=== PATIENT | female | born 1955 | race Caucasian/White ===

== ENCOUNTER 2017-01-24 12:47 | Emergency (ER) | payer OTHER ==
[~2017-01-24] VITALS: Ht 157.5 cm; Wt 79.0 kg
[~2017-01-24 12:47] MED LIST: ASPI-664 PO; ASPI81TA3 PO; FOR CHOLESTEROL; FOR HTN; INSULIN; LASS PO; THYROID MED; [UNRECOGNIZED DRUG - OTHER]; [UNRECOGNIZED DRUG - OTHER]; [UNRECOGNIZED DRUG - OTHER]; [UNRECOGNIZED DRUG - OTHER]; [UNRECOGNIZED DRUG - REMARK]; cholesterol med; insulin; thyroid medication
[2017-01-24 12:49] VITALS: Ht 157.5 cm; Wt 79.0 kg
--- NOTE | 2017-01-24 15:22 | ERD ---
ER Documentation Chief Complaint Date/Time DATE: 01/24/17 TIME: 15:00 Chief Complaint Complains of HTN with normal BP HX of Diabestes HPI 61-year-old female who presented to the emergency room for hypertension and high blood sugar. Daughter stated that they took her blood sugar at around 12 noon it was 230 mg/dl. they also took her blood pressure at around 12 noon and stated it was elevated but unknown specific number. The daughter stated that the really came in for abdominal pain that has been going on and off for about a week. Denies headache, loss of consciousness, dizziness, blurry vision, changes in vision, photophobia, facial pain, ear pain, throat pain, difficulty swallowing, neck pain, shoulder pain, chest pain, cough, hemoptysis, loss of appetite, nausea, vomiting, hematochezia, diarrhea, constipation, urinary symptoms, , the possibility of being , bladder and bowel incontinences, extremity weakness, extremity tenderness, numbness or tingling sensation, difficulty walking, recent travel, recent exposure to illness, recent antibiotic use in the last 3 months, fever, chills. No known drug allergies. Past medical history of hypertension, diabetes, thyroid disease. Denies any surgical history. Medications: Venlafaxine, Norvasc, losartan, levothyroxine, Reglan, oxybutynin, insulin Denies smoking, use of alcohol, use of illegal drugs. ROS All systems reviewed and are negative except as per history of present illness. Medications Home Meds Reported Medications Aspirin* (Aspirin* EC) 81 Mg Tablet.dr, PO DAILY, TAB 05/24/14 [for stomach] No Conflict Check 05/24/14 [cholesterol med] No Conflict Check 05/24/14 [thyroid medication] No Conflict Check 05/24/14 [diabetes medicine] No Conflict Check 05/24/14 [antihypertensives x3] No Conflict Check 05/24/14 [insulin] No Conflict Check 05/24/14 Furosemide* (Lasix* Liq) 8 Mg/Ml Soln, 40 MG PO DAILY 09/13/12 [Thyroid Med.] No Conflict Check, DAILY 09/13/12 [3 Meds. For Stomach] No Conflict Check, DAILY 09/13/12 Aspirin* (Aspirin* Chew) 81 Mg Tab.chew, 81 MG PO DAILY 09/13/12 [For Htn] No Conflict Check, DAILY 09/13/12 [For Cholesterol] No Conflict Check, DAILY 09/13/12 [Insulin] No Conflict Check 09/13/12 [For Dm] No Conflict Check, DAILY 09/13/12 Allergies Allergies: Coded Allergies: No Known Drug Allergies (Verified Allergy, Unknown, 09/13/12) PMhx/Soc History of Surgery: Yes Anesthesia Reaction: No Hx Neurological Disorder: No Hx Respiratory Disorders: No Hx Cardiac Disorders: Yes (HTN) Hx Psychiatric Problems: No Hx Miscellaneous Medical Probl: Yes Hx Alcohol Use: No Hx Substance Use: No Hx Tobacco Use: No Physical Exam Vitals Vital Signs Date Time Temp Pulse Resp B/P Pulse Ox O2 Delivery O2 Flow Rate FiO2 01/24/17 12:49 98.5 64 20 130/61 99 Physical Exam CONSTITUTIONAL: Well-appearing; well-nourished; in no apparent distress. HEAD: Normocephalic; atraumatic. EYES: Conjunctiva clear, sclera non-icteric, EOM intact. PERRL Ears: Hearing intact. EACs clear, TMs non-bulging, non-inflamed, translucent & mobile, ossicles normal appearance, No obstructions, no erythema, no discharges Nose: No obstructions. No polyps. No external lesions. Mucosa non-inflamed. No external lesions, septum and turbinates normal. No rhinorrhea. No discharges. Frontal sinus is non-tender to palpation. Maxillary sinus is non-tender to palpation. MOUTH: Moist mucous membranes, no lesion, no obstructions, no vesicles, no thrush, patent airway Throat: Uvula in midline. Right tonsil is +1 with no erythema, no exudate. Left tonsil is +1 with no erythema, no exudate. Tolerating secretions well. Good gag reflex. Patent airway. Neck: Supple, without lesions, bruits, or adenopathy. No mass. Thyroid non- enlarged and non-tender to palpation. CHEST: Symmetrical chest. Respirations even and not labored. No retractions noted. CARDIOVASCULAR: Normal S1, S2. RRR. No murmurs, gallops. RESPIRATORY: Normal chest excursion with respiration; breath sounds clear and equal bilaterally; no wheezes, rhonchi, or rales. Breathing even and unlabored. Speaking in clear, full, and complete sentences w/ ease. ABDOMEN: Normal bowel sounds normal. Distended. Soft, round, non-guarding, no tenderness, no rebound, no organomegaly, no masses, no pulsating abdominal mass. No hernia. No peritoneal signs. : No CVA tenderness. BACK: Symmetrical shoulder. Spine is midline without deformity, tenderness. No evidence of trauma or deformity. PELVIS: Stable pelvis. No evidence of trauma or deformity. MUSCULOSKELETAL: Normal gait and station. No misalignment, asymmetry, crepitation, defects, tenderness, masses, effusions, decreased range of motion, instability, atrophy or abnormal strength or tone in the head, neck, spine, ribs , pelvis or extremities. No calf tenderness. NEUROVASCULAR: Distal pulses are present. Pedal pulse are present, equal, and normal. Capillary refills are < 2 seconds. NEUROLOGIC: Alert and oriented x4. Speaks full and clear sentences. Cranial Nerves II-XII normal. Sensation to pain, touch, and proprioception normal. Grossly unremarkable. No neurologic deficits. Romberg test is negative. PSYCHOLOGICAL: The patients mood and manner are appropriate. No hallucinations , delusions. Not SI. Not HI. Has the capacity to decide for self SKIN: Normal for age and ethnicity; warm; dry; good turgor; no apparent lesions or exudates. No rashes, hives, discoloration. Intact. Result Diagram: 01/24/17 1541 01/24/17 1541 Results 24 hrs Laboratory Tests Test 01/24/17 15:41 01/24/17 16:55 White Blood Count 14.910^3/ul Red Blood Count 4.5810^6/ul Hemoglobin 13.4g/dl Hematocrit 39.6% Mean Corpuscular Volume 86.5fl Mean Corpuscular Hemoglobin 29.3pg Mean Corpuscular Hemoglobin Concent 33.8g/dl Red Cell Distribution Width 12.9% Platelet Count 79274^3/UL Mean Platelet Volume 10.4fl Neutrophils % 65.7% Lymphocytes % 25.3% Monocytes % 6.4% Eosinophils % 1.5% Basophils % 0.6% Nucleated Red Blood Cells % 0.0/100WBC Neutrophils # 9.810^3/ul Lymphocytes # 3.810^3/ul Monocytes # 1.010^3/ul Eosinophils # 0.210^3/ul Basophils # 0.110^3/ul Nucleated Red Blood Cells # 0.010^3/ul Prothrombin Time 12.9Sec Prothrombin Time Ratio 1.0 INR International Normalized Ratio 0.97 Activated Partial Thromboplast Time 29.0Sec Sodium Level 139mmol/L Potassium Level 4.1mmol/L Chloride Level 103mmol/L Carbon Dioxide Level 27mmol/L Anion Gap 13 Blood Urea Nitrogen 25mg/dl Creatinine 1.19mg/dl Glucose Level 107mg/dl Calcium Level 9.7mg/dl Total Bilirubin 0.0mg/dl Direct Bilirubin 0.00mg/dl Indirect Bilirubin 0.0mg/dl Aspartate Amino Transf (AST/SGOT) 16IU/L Alanine Aminotransferase (ALT/SGPT) 19IU/L Alkaline Phosphatase 135IU/L Total Protein 7.3g/dl Albumin 3.9g/dl Globulin 3.40g/dl Albumin/Globulin Ratio 1.14 Amylase Level 82U/L Lipase 33U/L Urine Color LT. YELLOW Urine Clarity HAZY Urine pH 6.0 Urine Specific Dodge 1.020 Urine Ketones TRACE Urine Nitrite NEGATIVE Urine Bilirubin NEGATIVE Urine Urobilinogen 0.2 E.U./dL Urine Leukocyte Esterase NEGATIVE Urine Microscopic RBC NONE SEEN/HPF Urine Microscopic WBC 5-10/HPF Urine Squamous Epithelial Cells MODERATE Urine Bacteria FEW Urine Hemoglobin NEGATIVE Urine Glucose NEGATIVE% Urine Total Protein 4+ Procedures/MDM Examination: Please see physical examination. Disease process, medical treatment was explained to the patient and family member. They verbalized understanding and agreed with the diagnostic tests, medical treatment, and follow-up care. EKG: Normal sinus rhythm with a ventricular rate of 64 bpm. No evidence of acute myocardial infarction. Radiology: CT abdomen and pelvis Impression: No evidence of urolithiasis, obstructive uropathy, diverticulitis or appendicitis. Post cholecystectomy. Vascular calcification. Blood works: Reviewed. Urinalysis: Reviewed. Treatment: Re-evaluation: Denies headache, dizziness, blurry vision, neck pain, chest pain , back pain, abdominal pain. No nausea and vomiting. No abdominal pain. Consultation: Differential diagnosis: Abdominal pain Medical decision makin-year-old female who presented to the emergency room for hypertension and high blood sugar. Daughter stated that they took her blood sugar at around 12 noon it was 230 mg/dl. they also took her blood pressure at around 12 noon and stated it was elevated but unknown specific number. The daughter stated that the really came in for abdominal pain that has been going on and off for about a week. Patient stated that her last bowel movement was 4 days ago. Patient's complaint, patient's history about her complaint, my physical findings, diagnostic test results are consistent with my final diagnosis of constipation. Case was discussed with supervising emergency room physician, Dr. Burroughs who agreed with my medical decision making. Medications prescribed are the following: Mag citrate. Patient and family member are made aware of the side effects and adverse reactions of the medications prescribed. Instructed on when to seek emergent and medical attention in case allergic/anaphylactic reactions or severe side effects and or adverse reactions to medications. Patient and family member verbalized understanding. Patient instructed Instructed to follow-up with his PCP in 24-48 hours. Instructed to Call 911 for chest pain, shortness of breath. Advised to come back here in ED as soon as possible for severity of symptoms which includes but not limited to: any new symptoms; shortness of breath/difficulty of breathing; cardiovascular changes; severe gastrointestinal symptoms; signs and symptoms of bleeding and or infection; signs of compartment syndrome/neurovascular changes; neurological changes/deficits. Patient and family member verbalized understanding. Upon discharge, patient is alert and oriented x 4, speaks full and clear sentences, denies pain, has no neurological deficits, has no neurovascular deficits, difficulty of breathing. Breathing even and unlabored. Lung sounds are clear to auscultation. Not in distress. Appears comfortable. Ambulatory with steady gait. Appears satisfied with care provided here in ED. Departure Diagnosis: Primary Impression: Constipation Condition: Good Additional Instructions: Patient instructed Instructed to follow-up with his PCP in 24-48 hours. Instructed to Call 911 for chest pain, shortness of breath. Advised to come back here in ED as soon as possible for severity of symptoms which includes but not limited to: any new symptoms; shortness of breath/difficulty of breathing; cardiovascular changes; severe gastrointestinal symptoms; signs and symptoms of bleeding and or infection; signs of compartment syndrome/neurovascular changes; neurological changes/deficits. Patient and family member verbalized understanding. STEF BECKWITH Jan 24, 2017 15:22
[2017-01-24 15:46] LABS: ADD SCAN DIFF NO
[2017-01-24 15:48] LABS: BASOPHIL # 0.1 10^3/ul (0.0-0.1); BASOPHILS % 0.6 % (0.0-2.0); EOSINOPHILS # 0.2 10^3/ul (0.0-0.5); EOSINOPHILS % 1.5 % (0.0-7.0); HEMATOCRIT 39.6 % (37.0-47.0); HEMOGLOBIN 13.4 g/dl (12.0-16.0); LYMPHOCYTES # 3.8 10^3/ul (0.8-2.9); LYMPHOCYTES % 25.3 % (15.0-51.0); MEAN CORPUSCULAR HEMOGLOBIN 29.3 pg (29.0-33.0); MEAN CORPUSCULAR HGB CONC 33.8 g/dl (32.0-37.0); MEAN CORPUSCULAR VOLUME 86.5 fl (82.0-101.0); MEAN PLATELET VOLUME 10.4 fl (7.4-10.4); MONOCYTES % 6.4 % (0.0-11.0); NEUTROPHIL # 9.8 10^3/ul (1.6-7.5); NEUTROPHILS % 65.7 % (39.0-77.0); PLATELET COUNT 366 10^3/UL (140-415); RED BLOOD COUNT 4.58 10^6/ul (4.20-5.40); RED CELL DISTRIBUTION WIDTH 12.9 % (11.5-14.5); WHITE BLOOD COUNT 14.9 10^3/ul (4.8-10.8)
[2017-01-24 15:57] LABS: INR 0.97; PROTIME 12.9 Sec (12.2-14.2)
[2017-01-24 16:04] LABS: ALBUMIN 3.9 g/dl (3.3-4.9)
[2017-01-24 16:05] LABS: POTASSIUM 4.1 mmol/L (3.5-5.1)
[2017-01-24 16:07] LABS: ALBUMIN/GLOBULIN RATIO 1.14; CREATININE 1.19 mg/dl (0.44-1.00); TOTAL PROTEIN 7.3 g/dl (6.1-8.1)
[2017-01-24 16:08] LABS: CALCIUM 9.7 mg/dl (8.4-10.2)
[2017-01-24 17:22] LABS: ADD UMIC YES; URINE BILIRUBIN (Dip) NEGATIVE (NEGATIVE); URINE BLOOD (Dip) NEGATIVE (NEGATIVE); URINE COLOR LT. YELLOW (YELLOW); URINE GLUCOSE (Dip) NEGATIVE (NEGATIVE); URINE KETONES (Dip) TRACE (NEGATIVE); URINE LEUKOCYTE ESTERASE (Dip) NEGATIVE (NEGATIVE); URINE NITRITE (Dip) NEGATIVE (NEGATIVE); URINE TOTAL PROTEIN (Dip) 4+ (NEGATIVE); URINE UROBILINOGEN (Dip) 0.2 E.U./dL (0.1-1.0)
[2017-01-24 17:32] LABS: BACTERIA,URINE FEW; SQUAMOUS EPITHELIAL CELL,UR MODERATE; URINE RBCS NONE SEEN /HPF (0)
--- NOTE | 2017-01-24 17:35 | RADRPT ---
PROCEDURE: CT abdomen and pelvis without contrast. CLINICAL INDICATION: Abdominal Pain TECHNIQUE: CT scan of the abdomen and pelvis without contrast was performed and is reconstructed a t 2.5 mm contiguous axial intervals from the dome of the diaphragm to the inferior pubic rami.. The patient was scanned without intravenous contrast. Sagittal and coronal reformatted images were obt ained from the axial source images. The calculated radiation dose measures 920 mGy centimeters. The CTDI measures 17 mGy. COMPARISON: None. FINDINGS: The lung bases are clear of any infiltrate or nodule. No effusion is seen. The liver is of normal size, contour and attenuation with no mass or ductal dilatation. Gallbladder is absent. No splenic, adrenal or pancreatic abnormalities present. Kidneys are of normal size and contour. No hydronephrosis, calculus or masses seen. Ureters are o f normal course and caliber with no stone. No bladder mass or stone is present. Uterus and ovaries are normal. There is no aneurysm. There are vascular calcifications. No adenopathy is present. No bowel mass or obstruction is present. The appendix is normal. No phlegmon, ascites or pneumop eritoneum is visualized. The osseous structures are intact. IMPRESSION: No evidence of urolithiasis, obstructive uropathy, diverticulitis or appendicitis. Post cholecystectomy. Vascular calcifications. .William Andrade MD, Date Time Electronically viewed and signed by .William Andrade MD, on 01/24/2017 17:35 .A/
[2017-01-24] MEDS ORDERED: MAGN296S40 PO (17:59)
[2017-01-24 18:33] VITALS: BP 122/71; PULSE 75; RESP 17; TEMP 98.7
== END 2017-01-24 18:34 | disposition home or self-care (01) ==
LOC: FTE 12:47
DX: K59.00 Constipation, unspecified (principal); I10 Essential (primary) hypertension; E11.9 Type 2 diabetes mellitus without complications; Z79.4 Long term (current) use of insulin; Z79.82 Long term (current) use of aspirin
CPT/HCPCS: 74176; 80053; 81001; 81003; 82150; 83690; 85025; 85610; 85730; 87086; 93005

== ENCOUNTER 2018-02-02 09:27 | Day surgery (SDC) | END 2018-02-02 19:10 | disposition home or self-care (01) ==